=== PATIENT | male | born 2000 | race Caucasian/White ===

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

== ENCOUNTER 2022-02-20 16:05 | Emergency (ER) | payer MEDICAID ==
[~2022-02-20] VITALS: Ht 170.2 cm; Wt 58.1 kg
[2022-02-20 17:48] LABS: STREP SCREEN NEGATIVE (NEGATIVE)
[2022-02-20] MEDS ORDERED: AMOXICILLIN 50500 MG PO (18:14)
[2022-02-20 18:38] VITALS: BP 136/78
== END 2022-02-20 18:39 | disposition home or self-care (01) ==
LOC: ED 16:05
PROVIDERS: Nurse Practitioner Family
DX: J03.90 Acute tonsillitis, unspecified (principal); F17.290 Nicotine dependence, other tobacco product, uncomplicated; Z20.822 Contact with and (suspected) exposure to COVID-19

== ENCOUNTER 2024-08-13 07:54 | Emergency (ER) | payer SELFPAY ==
[~2024-08-13] VITALS: Ht 17.8 cm; Wt 58.0 kg
[~2024-08-13 07:54] MED LIST changes: +AMOXICILLIN 50500 MG PO
[2024-08-13] MEDS ORDERED: AMOXICILLIN875 MG PO (09:19)
[2024-08-13 09:26] VITALS: BP 1347/76
== END 2024-08-13 09:39 | disposition home or self-care (01) ==
LOC: ED 07:54
DX: J02.9 Acute pharyngitis, unspecified (principal); H66.91 Otitis media, unspecified, right ear